=== PATIENT | female | born 1970 | race Asian ===

== ENCOUNTER 2017-03-13 16:53 | Emergency (ER) | payer BC ==
[~2017-03-13] VITALS: Ht 147.3 cm; Wt 56.8 kg
[~2017-03-13 16:53] MED LIST: NORCO 325 MG-51 TAB PO
[2017-03-13 17:05] VITALS: TEMP 98
[2017-03-13] MEDS ORDERED: LEVBID0.375 MG (17:07)
[2017-03-13] MEDS ORDERED: AMOXICILLIN 50500 MG PO (18:38)
[2017-03-13] MEDS ORDERED: ULTRAM 50MG TAB50 MG PO (18:38)
[2017-03-13 18:43] VITALS: BP 132/80; PULSE 92
== END 2017-03-13 18:44 | disposition home or self-care (01) ==
LOC: COL.ER 16:53
DX: K02.9 Dental caries, unspecified (principal); Z90.49 Acquired absence of other specified parts of digestive tract; Z90.89 Acquired absence of other organs; Z98.51 Tubal ligation status

== ENCOUNTER → 2017-05-16 | Outpatient (CLI) | payer BC ==
[~2017-05-16] MED LIST changes: +AMOXICILLIN 50500 MG PO; +LEVBID0.375 MG; +ULTRAM 50MG TAB50 MG PO
[2017-05-16 17:06] LABS: BASO # 0.1 (0.0-0.2); BASO % 0.6 % (0.0-2.0); EOS # 0.1 (0.0-0.7); EOS % 0.8 % (0-4.0); GRAN # 5.5 (1.4-6.5); GRAN % 62.7 % (42.2-75.2); HEMOGLOBIN 12.7 g/dl (12.5-16.0); LYMPH # 2.5 (1.2-3.4); LYMPH % 28.5 % (20.0-51.0); MEAN CELL VOLUME 81 fl (80.0-100.0); MEAN CORPUSCULAR HEMOGLOBIN 27 pg (27.0-31.0); MEAN CORPUSCULAR HGB CONC 33 g/dl (33.0-37.0); MEAN PLATELET VOLUME 11.7 fl (7.4-10.4); MONO # 0.6 (0.1-0.6); MONO % 7.2 % (1.7-9.3); PLATELET COUNT 288 K/mm3 (130-400); RED BLOOD COUNT 4.68 M/mm3 (4.10-5.30); WHITE BLOOD COUNT 8.8 K/mm3 (4.8-10.8)
[2017-05-16 17:12] LABS: ADJUSTED CALCIUM 9.4 mg/dL (8.4-10.2); ALBUMIN 4.4 gm/dL (3.5-5.0); BILIRUBIN,TOTAL 0.5 mg/dL (0.0-1.0); CALCIUM 9.7 mg/dL (8.4-10.2); CHOLESTEROL RISK RATIO 4.6; CREATININE, serum 0.8 mg/dL (0.52-1.25); POTASSIUM 3.8 mmol/L (3.4-5.0); TOTAL PROTEIN 7.9 gm/dL (6.4-8.2)
[2017-05-16 17:42] LABS: TSH w REFLEX 2.91 uIU/mL (0.465-4.680)
== END ==
LOC: COL.LAB 14:52
PROVIDERS: Nurse Practitioner
DX: E66.3 Overweight (principal)

== ENCOUNTER 2017-05-30 12:51 | Outpatient (RCR) | payer OTHER | END 2017-07-01 14:22 | disposition still patient (30) | LOC: WSOH 12:51 | DX: S86.311A Strain of muscle(s) and tendon(s) of peroneal muscle group at lower leg level, right leg, initial encounter (principal); Z88.6 Allergy status to analgesic agent; X50.1XXA Overexertion from prolonged static or awkward postures, initial encounter; Y99.0 Civilian activity done for income or pay ==

== ENCOUNTER 2017-08-31 12:57 | Emergency (ER) | payer OTHER ==
[~2017-08-31] VITALS: Ht 147.3 cm; Wt 59.1 kg
[2017-08-31 13:06] VITALS: TEMP 98
[2017-08-31 15:19] LABS: COLLECTION METHOD CLEAN CATCH
[2017-08-31 15:39] LABS: BUDDING YEAST Present /hpf; PH 6 (5-8); SQUAMOUS EPITHELIAL 0-2 /hpf; URINE APPEARANCE Hazy; URINE BACTERIA None Seen /hpf; URINE BILIRUBIN Negative (NEGATIVE); URINE BLOOD 2+ (NEGATIVE); URINE COLOR Yellow; URINE GLUCOSE Negative (NEGATIVE); URINE KETONE Negative (NEGATIVE); URINE LEUKOCYTE ESTERASE 2+ (NEGATIVE); URINE NITRATE Negative (NEGATIVE); URINE PROTEIN(semi-quant) Negative (NEGATIVE); URINE RBC >50 /hpf; URINE UROBILINOGEN >=4.0 mg/dL (NEGATIVE)
[2017-08-31] MEDS ORDERED: PYRIDIUM200 M1 PO (16:00)
[2017-08-31] MEDS ORDERED: CIPRO 500MG TA500 MG PO (16:00)
[2017-08-31 16:24] VITALS: BP 117/88; PULSE 85
== END 2017-08-31 16:24 | disposition home or self-care (01) ==
LOC: COL.ER 12:57
PROVIDERS: Emergency Medicine
DX: N30.90 Cystitis, unspecified without hematuria (principal)

== ENCOUNTER → 2018-11-05 | Outpatient (CLI) | payer OTHER ==
[~2018-11-05] MED LIST changes: +CIPRO 500MG TA500 MG PO; +PYRIDIUM200 M1 PO
== END ==
LOC: ZCOL.LAB 16:33
DX: R31.9 Hematuria, unspecified (principal)

== ENCOUNTER → 2018-11-26 | Outpatient (CLI) | payer OTHER ==
[2018-11-26 16:23] LABS: COLLECTION METHOD CLEAN CATCH
[2018-11-26 16:33] LABS: MUCOUS Present /lpf; PH 5 (5-8); SQUAMOUS EPITHELIAL 0-2 /hpf; URINE APPEARANCE Clear; URINE BACTERIA None Seen /hpf; URINE BILIRUBIN Negative (NEGATIVE); URINE BLOOD 1+ (NEGATIVE); URINE COLOR Yellow; URINE GLUCOSE Negative (NEGATIVE); URINE KETONE Negative (NEGATIVE); URINE LEUKOCYTE ESTERASE Negative (NEGATIVE); URINE NITRATE Negative (NEGATIVE); URINE PROTEIN(semi-quant) Negative (NEGATIVE); URINE RBC 0-2 /hpf; URINE UROBILINOGEN Negative (NEGATIVE); URINE WBC 0-2 /hpf
== END ==
LOC: ZCOL.LAB 16:11
PROVIDERS: Family Medicine
DX: N39.0 Urinary tract infection, site not specified (principal)

== ENCOUNTER → 2019-04-07 | Outpatient (CLI) | payer OTHER | LOC: ZCOL.LAB 17:46 | DX: Z20.5 Contact with and (suspected) exposure to viral hepatitis (principal) ==